=== PATIENT | female | born 1985 | race Two or more races ===

== ENCOUNTER 2020-04-21 10:15 | Outpatient (CLI) | payer OTHER | END 2020-04-21 10:23 | disposition home or self-care (01) | LOC: RX STUDY 10:15 | PROVIDERS: ATTEND Obstetrics & Gynecology Reproductive Endocrinology | DX: D25.9 Leiomyoma of uterus, unspecified (principal) ==

== ENCOUNTER 2021-01-24 08:15 | Outpatient (CLI) | payer OTHER | END 2021-01-24 08:21 | disposition home or self-care (01) | LOC: RX STUDY 08:15 | PROVIDERS: ATTEND Obstetrics & Gynecology Reproductive Endocrinology | DX: N97.8 Female infertility of other origin (principal) ==

== ENCOUNTER 2021-11-22 08:41 | Outpatient (CLI) | payer OTHER | END 2021-11-22 08:44 | disposition home or self-care (01) | LOC: EDBD 08:41 → RX STUDY 08:41 | DX: N84.0 Polyp of corpus uteri (principal) ==